=== PATIENT | male | born 1985 | race Two or more races ===

== ENCOUNTER 2017-01-08 15:24 | Emergency (ER) | payer SELFPAY ==
--- NOTE | ~2017-01-08 | ER ---
PATIENT'S NAME: FELICE VARELA [facility] AGE: 31 Y [address] ROOM: [place] [id number] LOCATION: [facility] ADMIT DATE: 01/08/2017 ER/Outpatient Report DISCHARGE DATE: 01/08/2017 FAMILY PHYSICIAN: PHYSICIAN, NO ATTENDING PHYSICIAN: Weston Eastman ADDENDUM: Please see Miriam Moreno's note for chief complaint, history of present illness, past medical history, past surgical history, social history, allergies, medications, review of systems, physical exam. The patient was seen by myself. HOSPITAL COURSE: The patient does have a left anterior shoulder dislocation. He is neurovascularly intact upon initial evaluation. X-rays have been reviewed by myself. The risks and benefits have been discussed. The patient has had this dislocated 4 times in the past. Verbal and written consents are obtained. 10 mL of 0.5% Marcaine in 10 mL of 1% lidocaine are utilized for hematoma block. 5 mg of morphine was given. Attempted reduction by Crespo technique is obtained without success. The patient was unable to tolerate. We contacted Anesthesia and NickJAKE, has helped assist us with anesthesia. The patient was given propofol. Traction and external rotation is utilized to allow the reduction of the left shoulder. A postreduction film is obtained with successful reduction of the anterior shoulder dislocation. COMPLICATIONS: None. DO ENRIQUE GORE/shobha /[id number] d: 01/09/17 0634 t: 01/09/17 0911, OUTPATIENT REPORT
--- NOTE | ~2017-01-08 | ER ---
PATIENT'S NAME: NICHOLE FELICE [facility] AGE: 31 Y [address] ROOM: [place] [address] LOCATION: [facility] ADMIT DATE: 01/08/2017 ER/Outpatient Report DISCHARGE DATE: 01/08/2017 FAMILY PHYSICIAN: PHYSICIAN, NO ATTENDING PHYSICIAN: Weston Eastman Time of Arrival: 1526 hours. Time of Evaluation: 1530 hours. CHIEF COMPLAINT: Left shoulder injury. HISTORY OF PRESENT ILLNESS: The patient states approximately 20 minutes prior to arrival, he was doing some exercise, and he fell backwards and caught himself with an outstretched arm causing a dislocation of his left shoulder. He has had a shoulder dislocation of the shoulder 4 times, and the last being approximately 2 to 3 years ago. Original injury occurred back in 2011. He did have surgery at that time. ALLERGIES: NO KNOWN ALLERGIES. MEDICATIONS: No current medications. PAST MEDICAL HISTORY: Recurrent shoulder dislocation. PAST SURGICAL HISTORY: Shoulder injury in 2011. SOCIAL HISTORY: Denies use of tobacco, drugs, or alcohol. REVIEW OF SYSTEMS: All negative other than those mentioned in the HPI. The patient does speak [place] African and has understanding of South African, but the Martti was also utilized to verify that he had understanding of what we were talking about. REVIEW OF SYSTEMS: All negative other than those mentioned in the HPI. PHYSICAL EXAMINATION: VITAL SIGNS: He weighs 67.8 kg, blood pressure is 128/76, pulse is 75, [facility]GE[facility] 31 Y [address] ROOM: [place] [address] LOCATION: [facility] ADMIT DATE: 01/08/2017 ER/Outpatient Report DISCHARGE DATE: 01/08/2017 FAMILY PHYSICIAN: PHYSICIAN, NO ATTENDING PHYSICIAN: Weston Eastman respirations 14, temperature of 97.7, O2 saturations 96% on room air. GENERAL: He is awake, alert, and oriented x4. SKIN: Carey, warm, and dry. RESPIRATIONS: Even and nonlabored. Lung sounds are clear throughout. HEART: Regular rate and rhythm. EXTREMITIES: The patient is holding his left arm carefully. He will not lay down on the cart. He does have strong radial and ulnar pulses, and he says it is painful to wiggle his fingers. LABORATORY DATA AND X-RAYS: X-ray was completed. This showed anterior dislocation. EMERGENCY DEPARTMENT COURSE: Saline lock was initiated. The patient was reviewed with Dr. Eastman. The patient was given morphine 5 mg IV, and Dr. Eastman did inject shoulder joint with Marcaine and lidocaine. Attempted to do a close reduction without success. Anesthesia was called. They did come and gave the patient some general IV sedation. Once relaxed, the shoulder dislocation was reduced by Dr. Eastman without any difficulty. Arm sling was applied. X-rays were completed and reviewed with Dr. Eastman. IMPRESSION: Shoulder dislocation. PLAN: Wear the shoulder sling for support. Ice to the shoulder area. Rest. No heavy lifting. Minimal use of the arm for the next 24 hours. Prescription was written for [employer]. He was given the name of Dr. Elam at [facility] as he is on-call for orthopedics for followup. The patient verbalized understanding. MARTINE ROTHMAN APRN FOR WESTON EASTMAN, DO HANDY/shobha /[id number] d: 01/09/17 0018 t: 01/12/17 0749, OUTPATIENT REPORT
== END 2017-01-08 17:25 | disposition disaster alternative care site (69) ==
LOC: GACC 15:24
PROC: 0RSKXZZ Reposition Left Shoulder Joint, External Approach (ICD-10-PCS; principal; 2017-01-08)
DX: S43.015A Anterior dislocation of left humerus, initial encounter (principal); Z87.828 Personal history of other (healed) physical injury and trauma; X50.9XXA Other and unspecified overexertion or strenuous movements or postures, initial encounter; Y93.B9 Activity, other involving muscle strengthening exercises; Y99.8 Other external cause status
CPT/HCPCS: J2250; J2270; J7040